=== PATIENT | male | born 1945 | race Hispanic/Latino ===

== ENCOUNTER → 2022-09-03 | Outpatient (CLI) | payer OTHER ==
[2022-09-03 12:34] LABS: BASOPHILS % (AUTO) 0.3 % (0.0-5.0); EOSINOPHILS % (AUTO) 1.6 % (0.0-8.0); HEMATOCRIT 38.5 % (42-54); LYMPHOCYTES % (AUTO) 26.5 % (21.0-51.0); MEAN CORPUSCULAR HEMOGLOBIN 29.1 pg (27.0-33.0); MEAN CORPUSCULAR HGB CONC 32.5 g/dL (32.0-36.0); MEAN CORPUSCULAR VOLUME 89.7 fL (79-99); MONOCYTES % (AUTO) 7.5 % (3.0-13.0); NEUTROPHILS % (AUTO) 63.7 % (40.0-77.0); PLATELET COUNT (AUTO) 247 K/uL (130-400); RED BLOOD CELL COUNT(AUTO) 4.29 MIL/uL (4.50-6.20); RED CELL DISTRIBUTION WIDTH 13.4 % (11.0-15.5)
[2022-09-03 12:44] LABS: HEMOGLOBIN A1C 5.9 % (4.0-6.0)
[2022-09-03 13:05] LABS: ALBUMIN 3.7 g/dL (3.5-5.0); CREATININE 1.2 mg/dL (0.5-1.5); POTASSIUM 4.5 mmol/L (3.5-5.1); T4 (THYROXINE) 7.3 ug/dL (4.7-13.3); THYROID STIMULATING HORMONE 3.09 uIU/mL (0.36-3.74); TOTAL PROTEIN, SERUM 7.5 g/dL (6.0-8.3)
== END | disposition home or self-care (01) ==
LOC: LAB 08:44
PROVIDERS: ATTEND Internal Medicine Cardiovascular Disease
DX: E78.5 Hyperlipidemia, unspecified (principal); I73.9 Peripheral vascular disease, unspecified; I10 Essential (primary) hypertension; E11.9 Type 2 diabetes mellitus without complications
CPT/HCPCS: 36415; 80053; 80061; 83036; 84436; 84443; 84479; 85025

== ENCOUNTER → 2022-09-10 | Outpatient (CLI) | payer OTHER ==
[2022-09-10 13:15] LABS: ALBUMIN 3.7 g/dL (3.5-5.0); CREATININE 1.2 mg/dL (0.5-1.5); POTASSIUM 4.5 mmol/L (3.5-5.1); TOTAL PROTEIN, SERUM 7.5 g/dL (6.0-8.3)
== END | disposition home or self-care (01) ==
LOC: LAB 09:05
PROVIDERS: ATTEND Internal Medicine Cardiovascular Disease
DX: I73.9 Peripheral vascular disease, unspecified (principal)
CPT/HCPCS: 36415; 80053

== ENCOUNTER → 2022-09-17 | Outpatient (CLI) | payer OTHER ==
[~2022-09-17] MED LIST: IOHEXOL 350 MG/ML 100ML INFUS..BTL IV ONE; IOHEXOL-350 50ML VIAL IV ONE
== END | disposition home or self-care (01) ==
LOC: RAH 07:31
PROVIDERS: ATTEND Internal Medicine Cardiovascular Disease
DX: I71.43 Infrarenal abdominal aortic aneurysm, without rupture (principal); I73.9 Peripheral vascular disease, unspecified; K57.90 Diverticulosis of intestine, part unspecified, without perforation or abscess without bleeding; I70.8 Atherosclerosis of other arteries; I10 Essential (primary) hypertension; K44.9 Diaphragmatic hernia without obstruction or gangrene; K76.89 Other specified diseases of liver; N28.1 Cyst of kidney, acquired; N32.89 Other specified disorders of bladder; J98.11 Atelectasis; J98.4 Other disorders of lung; M47.815 Spondylosis without myelopathy or radiculopathy, thoracolumbar region
CPT/HCPCS: 75635; Q9967 ×2

== ENCOUNTER → 2022-10-06 | Outpatient (CLI) | payer OTHER | END | disposition home or self-care (01) | LOC: RAH 12:41 | PROVIDERS: ATTEND Internal Medicine Cardiovascular Disease | DX: Z13.6 Encounter for screening for cardiovascular disorders (principal); I51.5 Myocardial degeneration | CPT/HCPCS: 75571 ==

== ENCOUNTER → 2022-11-18 | Outpatient (CLI) | payer OTHER ==
[~2022-11-18] MED LIST changes: -IOHEXOL 350 MG/ML 100ML INFUS..BTL IV ONE; -IOHEXOL-350 50ML VIAL IV ONE; +REGADENOSON 0.4 MG/5 ML PF SYG IVP SCH
== END | disposition home or self-care (01) ==
LOC: SHCH 07:50
PROVIDERS: ATTEND Internal Medicine Cardiovascular Disease
DX: R93.1 Abnormal findings on diagnostic imaging of heart and coronary circulation (principal); E78.5 Hyperlipidemia, unspecified; I73.9 Peripheral vascular disease, unspecified; Z79.899 Other long term (current) drug therapy
CPT/HCPCS: 78452; 96374; 93017; J2785; A9500 ×2

== ENCOUNTER 2023-07-28 06:06 | Day surgery (SDC) | payer OTHER ==
[2023-07-22 11:46] VITALS: BP 161/64; PULSE 78; RESP 18
[2023-07-22 12:06] LABS: BASOPHILS # (AUTO) 0.02 K/uL (0.00-0.20); BASOPHILS % (AUTO) 0.4 % (0.0-5.0); EOSINOPHILS # (AUTO) 0.07 K/uL (0.00-0.70); EOSINOPHILS % (AUTO) 1.3 % (0.0-8.0); HEMATOCRIT 33.2 % (42-54); IMMATURE GRANULOCYTE ABSOLUTE 0.02 K/uL (0-1); LYMPHOCYTES # (AUTO) 1.6 K/uL (1.0-4.8); LYMPHOCYTES % (AUTO) 30.3 % (21.0-51.0); MEAN CORPUSCULAR HEMOGLOBIN 29.3 pg (27.0-33.0); MEAN CORPUSCULAR HGB CONC 31.6 g/dL (32.0-36.0); MEAN CORPUSCULAR VOLUME 92.7 fL (79-99); MONOCYTES # (AUTO) 0.3 K/uL (0.1-1.0); MONOCYTES % (AUTO) 5.9 % (3.0-13.0); NEUTROPHILS # (AUTO) 3.2 K/uL (1.8-7.7); NEUTROPHILS % (AUTO) 61.7 % (40.0-77.0); PLATELET COUNT (AUTO) 166 K/uL (130-400); RED BLOOD CELL COUNT(AUTO) 3.58 MIL/uL (4.50-6.20); RED CELL DISTRIBUTION WIDTH 13.7 % (11.0-15.5); WHITE BLOOD COUNT (AUTO) 5.2 K/uL (4.8-10.8)
[2023-07-22 12:17] LABS: CREATININE 1.2 mg/dL (0.5-1.5); PROTHROMBIN TIME 11.6 SEC (9.6-11.6)
[2023-07-22 12:18] LABS: PARTIAL THROMBOPLASTIN TIME 25.9 SEC (26.3-35.5)
[2023-07-28] VITALS (17 sets, daily range): BP systolic 96–155; BP diastolic 51–74; PULSE 55–84; RESP 10–18
[~2023-07-28] VITALS: Ht 180.3 cm; Wt 87.8 kg
[~2023-07-28 06:06] MED LIST changes: +ATOR10 PO; +CILO100T3 PO; +FINA5TAB41 PO; +FIORIT PO; +GABA-529 PO; +LISI10TA24 PO; +MECL-160 PO; -REGADENOSON 0.4 MG/5 ML PF SYG IVP SCH; +SENN-307 PO; +SERT-438 PO
[2023-07-28] MEDS ORDERED: LACTATED RINGERS 1000ML 1,000 ML IV ONE (06:26)
[2023-07-28] MEDS ORDERED: CEFAZOLIN SODIUM 2 GM VIAL ONE (06:26)
[2023-07-28] MEDS ORDERED: BUPIVACAINE/PF 0.25% 30ML VIAL IJ ONE (07:40)
[2023-07-28] MEDS ORDERED: EPINEPHRINE PF 1MG (1:1,000) 1 MG/ML AMP ONE (07:40)
[2023-07-28] MEDS ORDERED: FENTANYL CITRATE PF 50 MCG/1 ML 2ML VIAL ONE (07:59)
[2023-07-28] MEDS ORDERED: MIDAZOLAM HCL 1 MG/ML 2ML VIAL ONE (07:59)
[2023-07-28] MEDS ORDERED: PROPOFOL 10 MG/ML 20ML VIAL IV ONE ×2 (07:59→08:20)
[2023-07-28] MEDS ORDERED: GLYCOPYRROLATE 1 MG/5 ML SYRINGE ONE (08:26)
[2023-07-28] MEDS ORDERED: EPHEDRINE SULFATE 50 MG/ML AMPULE ONE (08:29)
[2023-07-28] MEDS ORDERED: PHENYLEPHRINE HCL 10 MG/ML 1ML VIAL IV ONE (08:42)
[2023-07-28] MEDS ORDERED: DOCU-116 PO (08:46)
[2023-07-28] MEDS ORDERED: TRAM50TA4 PO (08:48)
== END 2023-07-28 10:55 | disposition home or self-care (01) ==
LOC: DAH 06:06
PROVIDERS: ATTEND Surgery
DX: K61.0 Anal abscess (principal); L05.91 Pilonidal cyst without abscess; K21.9 Gastro-esophageal reflux disease without esophagitis; E78.5 Hyperlipidemia, unspecified; Z79.01 Long term (current) use of anticoagulants; Z79.899 Other long term (current) drug therapy
CPT/HCPCS: 93005; 80048; 85025; 85610; 85730; 36415; 46922; 88304; A6260; J7120; J3010; J3490 ×2; J0171; J2250; J2704 ×2; J2371; J0690; A6446; A4649; A4215; A4223; A4222; A4221; A4663; A4600

== ENCOUNTER 2024-12-24 01:08 | Inpatient (IN) | payer OTHER ==
[~2024-12-24] VITALS: Ht 177.8 cm; Wt 90.9 kg
[~2024-12-24 01:08] MED LIST changes: +DOCU-116 PO; -MECL-160 PO; +MECL-302 PO; +TRAM50TA4 PO
[2024-12-24 02:16] LABS: BASOPHILS # (AUTO) 0.01 K/uL (0.00-0.20); BASOPHILS % (AUTO) 0.2 % (0.0-5.0); EOSINOPHILS # (AUTO) 0.01 K/uL (0.00-0.70); EOSINOPHILS % (AUTO) 0.2 % (0.0-8.0); HEMATOCRIT 34.2 % (42-54); IMMATURE GRANULOCYTE ABSOLUTE 0.01 K/uL (0-1); LYMPHOCYTES # (AUTO) 0.6 K/uL (1.0-4.8); LYMPHOCYTES % (AUTO) 9.7 % (21.0-51.0); MEAN CORPUSCULAR HEMOGLOBIN 29.5 pg (27.0-33.0); MEAN CORPUSCULAR HGB CONC 32.2 g/dL (32.0-36.0); MEAN CORPUSCULAR VOLUME 91.7 fL (79-99); MONOCYTES # (AUTO) 0.6 K/uL (0.1-1.0); MONOCYTES % (AUTO) 9.5 % (3.0-13.0); NEUTROPHILS # (AUTO) 4.6 K/uL (1.8-7.7); NEUTROPHILS % (AUTO) 80.2 % (40.0-77.0); PLATELET COUNT (AUTO) 157 K/uL (130-400); RED BLOOD CELL COUNT(AUTO) 3.73 MIL/uL (4.50-6.20); RED CELL DISTRIBUTION WIDTH 13.2 % (11.0-15.5); WHITE BLOOD COUNT (AUTO) 5.8 K/uL (4.8-10.8)
[2024-12-24 02:21] LABS: INR 1.06 (0.85-1.15); PROTHROMBIN TIME 11.8 SEC (9.6-11.6)
[2024-12-24 02:22] LABS: SARS-CoV-2, RNA, NAAT NEGATIVE SARS CoV-2 (NEGATIVE)
[2024-12-24 02:22] LABS: CREATININE 1.4 mg/dL (0.5-1.3); PARTIAL THROMBOPLASTIN TIME 28.3 SEC (26.3-35.5); POTASSIUM 4.3 mmol/L (3.5-5.1)
[2024-12-24 02:26] LABS: INFLUENZA TYPE B Negative For Type B (NEGATIVE)
[2024-12-24 02:28] LABS: INFLUENZA TYPE A Positive For Type A (NEGATIVE)
[2024-12-24] MEDS: OSELTAMIVIR PHOSPHATE 75 MG CAP PO ONE (03:33)
--- NOTE | 2024-12-24 05:08 | ERN ---
General Chief Complaint: Mechanical Fall Stated Complaint: LOW BACK PAIN S/P FALL, - LOC, - ANTICOAGULANTS Time Seen by MD: 01:30 History of Present Illness Initial Comments 79-year-old male came in after a fall secondary to a syncopal episode. Patient also states that he has been having fever with cough. Patient otherwise has no concerns. Allergies: Coded Allergies: No Known Allergies (Verified Allergy, Unknown, 11/14/22) Home Meds Active Scripts Tramadol Hcl (Tramadol HCl) 50 Mg Tablet, 50 MG PO Q6HPRN PRN for PAIN, #28 TAB 0 Refills Prov:ADELAIDA UREÑA MD 07/28/23 Docusate Sodium (Colace) 100 Mg Capsule, 100 MG PO BID, #30 CAP 0 Refills Prov:ADELAIDA UREÑA MD 07/28/23 Reported Medications Meclizine HCl (Meclizine HCl) 25 Mg Tablet, 25 MG PO TID PRN for DIZZINESS, TAB 07/22/23 Sennosides/Docusate Sodium (Stool Softener Tablet) 1 Each Tablet, 1 EACH PO DAILY PRN for CONSTIPATION, TAB 07/22/23 Atorvastatin Calcium (LIPITOR) 10 Mg Tab, 10 MG PO HS, TAB 07/22/23 Butalb/Acetaminophen/Caffeine (Fioricet) 1 Tab Tab, 1 TAB PO Q4HPRN PRN for HEADACHE, TAB 07/22/23 Cilostazol (Cilostazol) 100 Mg Tablet, 100 MG PO BID, TAB 07/22/23 Sertraline HCl (Sertraline HCl) 25 Mg Tablet, 25 MG PO DAILY, TAB 07/22/23 Lisinopril (Lisinopril) 10 Mg Tablet, 10 MG PO DAILY, TAB 07/22/23 Finasteride (Finasteride) 5 Mg Tablet, 5 MG PO DAILY, TAB 07/22/23 Gabapentin (Gabapentin) 100 Mg Capsule, 100 MG PO TID, CAP 07/22/23 Past Medical History Past Medical History: Diabetes-Type II, High Cholesterol, Hypertension Medical History Other: BPH Past Surgical History: Unknown ROS Dictation CONSTITUTIONAL: Negative except for HPI HEAD/FACE: Negative except for HPI EENT: Negative except for HPI RESPIRATORY: Negative except for HPI GASTROINTESTINAL/ABDOMINAL: Negative except for HPI GENITOURINARY: Negative except for HPI MUSCULOSKELETAL: Negative except for HPI INTEGUMENTARY: Negative except for HPI NEUROLOGICAL/PSYCH: Negative except for HPI HEMATOLOGIC/LYMPHATIC: Negative except for HPI All Systems Negative, Except as noted above. 13 point review of systems assessed and all negative except for above. Physical Exam Physical Exam Dictation Vital Signs reviewed General Appearance: Alert, oriented x 3, no acute distress, well developed, nourished. Head and Face: non-traumatic. Eyes: PERRL, pink conjunctivas, eyelid no trauma, anterior chamber with arcus senilis. Ears: Pinnas intact and no signs of trauma or erythema ear canals clear and no discharge TM no erythema Nose: No discharge, no bleeding. Oropharynx: Mouth normal, tongue pink, pharynx clear,no erythema, tonsils no exudates, no abscesses noted, mucous membrane moist Neck: Supple, non-tender, no thyromegaly, no masses, no JVD, no bruits Breast:Deferred Chest:No tenderness, no crepitus, no paradoxical movement, no retractions Lungs:Clear, well-ventilated, symmetric, no rales, no wheezing, no rhonchi, no stridor, good breath sounds bilaterally Heart: Regular rate, regular rhythm, no murmur, no gallops Vascular: no peripheral edema, Abdomen: Soft, positive bowel sounds, nondistended, no guarding, nontender, no rebound, no masses no hepatomegaly, no splenomegaly, no Field's sign, no hernias. Rectal: Deferred Genital: Deferred Neurological: Normal speech, motor function intact, sensory function intact Musculoskeletal: Neck nontender, full range of motion, back nontender, full range of motion, Extremities: nontender, full range of motion Skin: Color pink, dry, no turgor, no rash, no lacerations, no abrasions, no contusions. Lymphatic: Deferred Results Laboratory and Microbiology Lab and Micro Result Laboratory Tests Test 12/24/24 01:50 12/24/24 02:01 Influenza Type A Antigen Positive For Type A Influenza Type B Antigen Negative For Type B SARS-CoV-2, RNA, NAAT NEGATIVE SARS CoV-2 White Blood Count 5.8 K/uL (4.8-10.8) Red Blood Count 3.73 MIL/uL (4.50-6.20) L Hemoglobin 11.0 g/dL (14.0-18.0) L Hematocrit 34.2 % (42-54) L Mean Corpuscular Volume 91.7 fL (79-99) Mean Corpuscular Hemoglobin 29.5 pg (27.0-33.0) Mean Corpuscular Hemoglobin Concent 32.2 g/dL (32.0-36.0) Red Cell Distribution Width 13.2 % (11.0-15.5) Platelet Count 157 K/uL (130-400) Mean Platelet Volume 10.6 fL (7.5-10.5) H Immature Granulocyte % (Auto) 0.2 % (0-1) Neutrophils (%) (Auto) 80.2 % (40.0-77.0) H Lymphocytes (%) (Auto) 9.7 % (21.0-51.0) L Monocytes (%) (Auto) 9.5 % (3.0-13.0) Eosinophils (%) (Auto) 0.2 % (0.0-8.0) Basophils (%) (Auto) 0.2 % (0.0-5.0) Neutrophils # (Auto) 4.6 K/uL (1.8-7.7) Lymphocytes # (Auto) 0.6 K/uL (1.0-4.8) L Monocytes # (Auto) 0.6 K/uL (0.1-1.0) Eosinophils # (Auto) 0.01 K/uL (0.00-0.70) Basophils # (Auto) 0.01 K/uL (0.00-0.20) Absolute Immature Granulocyte (auto 0.01 K/uL (0-1) Nucleated Red Blood Cells 0.0 % (0.0-0.19) White Cell Morphology Comment See comments Prothrombin Time 11.8 SEC (9.6-11.6) H Prothromb Time International Ratio 1.06 (0.85-1.15) Activated Partial Thromboplast Time 28.3 SEC (26.3-35.5) Sodium Level 136 mmol/L (136-145) Potassium Level 4.3 mmol/L (3.5-5.1) Chloride Level 100 mmol/L (101-111) L Carbon Dioxide Level 28 mmol/L (21-32) Blood Urea Nitrogen 25 mg/dL (7-18) H Creatinine 1.4 mg/dL (0.5-1.3) H Glomerular Filtration Rate Calc 50 mL/min (>90) Random Glucose 112 mg/dL (70-105) H Lactic Acid Level 1.4 mmol/L (0.8-2.5) Total Calcium 8.1 mg/dL (8.5-10.1) L Troponin I High Sensitivity 13 ng/L (4-75) Lipase 19 U/L (16-77) Procalcitonin < 0.05 ng/mL (0.05-0.5) L MDM MDM: Differential diagnosis: Rationale: Tests considered and ordered secondary to shared decision making include: Previous outside records reviewed: Old ER visits. Risk of complication and/or morbidity or mortality of patient management: None Medications-Per medication reconciliation Need for hospitalization: Patient does meet criteria for hospitalization. Need for emergency major/minor surgery: No There are no social concerns with this patient. Prescription drug management Prescriptions will include symptomatic care Patient's prior external medical records from other ER visits were reviewed by me as indicated. Prior testing and results from previous visits were reviewed. Prior tests were taken into account with medical decision making and resource utilization, independent historian/historians were used to obtain complete medical history. I independently interpreted the test that were performed, results were reviewed by me and considered findings on radiology if ordered. Medical management and examination interpretation discussions were had by me w ith other qualified healthcare professionals as indicated for the patient's care. ED Course Orders Procedure Category Date Status Time 12 Lead Ekg Tracing- EKG 12/24/24 Logged Technical 01:35 Cbc With Differential LAB 12/24/24 Complete 01:35 Basic Metabolic Panel LAB 12/24/24 Complete 01:35 Covid Rna Naat LAB 12/24/24 Complete 01:35 Influenza Type A & B, LAB 12/24/24 Complete Rapid 01:35 Lactic Acid LAB 12/24/24 Complete 01:35 Lipase LAB 12/24/24 Complete 01:35 Procalcitonin LAB 12/24/24 Complete 01:35 Pt And Ptt LAB 12/24/24 Complete 01:35 Troponin I High LAB 12/24/24 Complete Sensitivity 01:35 Urinalysis LAB 12/24/24 Logged W/Microscopic 01:35 Chest 1vw RAD 12/24/24 Taken 01:35 Ct Head/Brain W/O CT 12/24/24 Taken Contrast 01:35 Ct Lumbar Spine W/O CT 12/24/24 Taken Contrast 01:54 Oseltamivir Phosphate PHA 12/24/24 Complete (Tamiflu) 03:30 Current Medications Medications (Trade) Dose Ordered Sig/Kristyn Route PRN Reason Start Time Stop Time Status Last Admin Dose Admin Oseltamivir Phosphate (Tamiflu) 75 mg ONCE ONCE PO 12/24/24 03:30 12/24/24 03:31 DC 12/24/24 03:33 Vital Signs Date Time Temp Pulse Resp B/P (MAP) Pulse Ox O2 Delivery O2 Flow Rate FiO2 12/24/24 02:58 98.4 87 15 138/49 95 Room Air* 0 21 12/24/24 01:13 100.9 98 16 142/77 97 Room Air 0 12/24/24 01:11 100.9 98 16 142/77 97 Room Air* 0 21 DX & DISP Disposition: Inpatient Departure Impression: Primary Impression: Syncope Additional Impressions: Pneumonitis, Influenza Condition: Stable Referrals: RIA ALLISON MD (PCP) JANEL STALLWORTH MD Dec 24, 2024 05:08
[2024-12-24] MEDS ORDERED: ondanSETRON 4MG TABLET PO PRN (05:30)
[2024-12-24] MEDS: DOXYCYCLINE HYCLATE 100 MG TABLET PO SCH (06:15)
[2024-12-24] MEDS: cefTRIAXone 1G VIAL IVPB SCH (06:15)
[2024-12-24] MEDS ORDERED: RISP0.5T80 PO (06:32)
[2024-12-24] MEDS ORDERED: METF-526 PO (06:32)
[2024-12-24] MEDS ORDERED: BREX1TAB PO ×2 (06:33→14:39)
[2024-12-24 06:34] LABS: APPEARANCE,URINE CLEAR (CLEAR); BILIRUBIN,URINE NEGATIVE (NEGATIVE); COLOR,URINE LIGHT-YELLOW (YELLOW); GLUCOSE, URINE (UA) NEGATIVE (NEGATIVE); KETONES,URINE NEGATIVE (NEGATIVE); LEUKOCYTE ESTERASE ,URINE NEGATIVE Leu/uL (NEGATIVE); NITRATE,URINE NEGATIVE (NEGATIVE); OCCULT BLOOD,URINE NEGATIVE (NEGATIVE); PROTEIN,URINE NEGATIVE (NEGATIVE); UROBILINOGEN,URINE 0.2 mg/dL (0.2-1.0)
--- NOTE | 2024-12-24 06:37 | EKG ---
[facility] Test Date: 2024-12-24 Test Time: 02:00:22 Pat Name: CHAZ HURST Department: EDHIP Room: ED 20 Gender: M Potato Bucker: [id number] Requested By: JANEL STALLWORTH Order Number: [id number] Reading MD: Teddy James Measurements Intervals [place] Rate: 92 P: 58 MN: 166 QRS: 53 QRSD: 101 T: 61 QT: 369 QTc: 457 Interpretive Statements Sinus rhythm Compared to ECG 07/22/2023 11:24:42 No significant changes Electronically Signed On 12-24-2024 17:17:55 [employer] W[employer]ER by Teddy James Please click the below link to view image of tracing.
[2024-12-24 06:56] LABS: BACTERIA,URINE RARE /HPF (None Seen); MUCUS,URINE FEW LPF (None Seen); OTHER CASTS, URINE 1 /LPF (None Seen); RBC,URINE 0-1 /HPF (0-1); SQUAMOUS EPITHELIAL CELL,UR RARE /HPF (0-2); WBC,URINE 0-1 /HPF (0-1)
--- NOTE | 2024-12-24 08:13 | HMCIMG ---
Exam Type: CT HEAD/BRAIN W/O CONTRAST Clinical Information: Syncope Comparison: None CT Dose Index (CTDI): 57.33 mGy Dose Length Product (DLP): 956.79 total mGy-cm Findings: There is low attenuation throughout the periventricular white matter locations, consistent with chronic small vessel ischemic changes. No acute intra- or extra-axial fluid collections are seen. There is no evidence of acute or chronic hemorrhage. There is no mass effect or shift of midline structures. There are no areas to suggest acute infarct. The skull windows show no significant abnormalities. IMPRESSION: 1. CHRONIC SMALL VESSEL ISCHEMIC CHANGES.
[2024-12-24 08:22] LABS: BASOPHILS # (AUTO) 0.02 K/uL (0.00-0.20); BASOPHILS % (AUTO) 0.4 % (0.0-5.0); EOSINOPHILS # (AUTO) 0.02 K/uL (0.00-0.70); EOSINOPHILS % (AUTO) 0.4 % (0.0-8.0); HEMATOCRIT 34.7 % (42-54); IMMATURE GRANULOCYTE ABSOLUTE 0.02 K/uL (0-1); LYMPHOCYTES # (AUTO) 0.7 K/uL (1.0-4.8); LYMPHOCYTES % (AUTO) 12.6 % (21.0-51.0); MEAN CORPUSCULAR HEMOGLOBIN 29.8 pg (27.0-33.0); MEAN CORPUSCULAR HGB CONC 32.6 g/dL (32.0-36.0); MEAN CORPUSCULAR VOLUME 91.6 fL (79-99); MONOCYTES # (AUTO) 0.6 K/uL (0.1-1.0); MONOCYTES % (AUTO) 10.8 % (3.0-13.0); NEUTROPHILS # (AUTO) 4.2 K/uL (1.8-7.7); NEUTROPHILS % (AUTO) 75.4 % (40.0-77.0); PLATELET COUNT (AUTO) 150 K/uL (130-400); RED BLOOD CELL COUNT(AUTO) 3.79 MIL/uL (4.50-6.20); RED CELL DISTRIBUTION WIDTH 13.3 % (11.0-15.5); WHITE BLOOD COUNT (AUTO) 5.6 K/uL (4.8-10.8)
--- NOTE | 2024-12-24 08:33 | HMCIMG ---
Exam Type: CT lumbar spine without contrast Clinical Information: Comparison: Technique: Spiral axial images were performed from T12 to the sacrum. Both sagittal and coronal reconstructions were performed. CT Dose Index (CTDI): mGy Dose Length Product (DLP): total Findings: There is normal alignment of the vertebral bodies. There are no fractures. There is facet hypertrophy. There are spondylitic changes. There are no large bulges or herniations. The prevertebral soft tissues are normal. IMPRESSION: Degenerative changes as noted.
[2024-12-24 08:39] LABS: ALBUMIN 3.4 g/dL (3.5-5.0); BILIRUBIN,TOTAL 0.6 mg/dL (0.2-1.0); CREATININE 1.2 mg/dL (0.5-1.3); MAGNESIUM 1.8 mg/dL (1.80-2.40); POTASSIUM 3.7 mmol/L (3.5-5.1); TOTAL PROTEIN, SERUM 7.2 g/dL (6.0-8.3)
[2024-12-24] MEDS: ENOXAPARIN SODIUM 30 MG/0.3 ML SQ SCH (08:50)
[2024-12-24] MEDS: OSELTAMIVIR PHOSPHATE 75 MG CAP PO SCH (08:50)
--- NOTE | 2024-12-24 08:55 | HMCIMG ---
Exam Type: CHEST 1VW Clinical Information: Shortness for breath Comparison: None Findings: Left Mediport catheter in place. The lungs are clear of infiltrates. The heart is normal in size. The bony and soft tissue structures of the chest are unremarkable. Impression: Clear lungs.
[2024-12-24] MEDS ORDERED: FINA5TAB41 PO (14:39)
[2024-12-24] MEDS ORDERED: METF-1150 PO (14:39)
[2024-12-24] MEDS ORDERED: MECL-226 PO (14:39)
[2024-12-24] MEDS ORDERED: GABA-529 PO (14:39)
[2024-12-24] MEDS ORDERED: RISP0.5T46 PO (14:39)
[2024-12-24] MEDS ORDERED: ATOR10 PO (14:39)
[2024-12-24] MEDS ORDERED: SERT-438 PO (14:39)
[2024-12-24 17:05] VITALS: BP 164/82; PULSE 95; RESP 20; TEMP 98.1
[2024-12-24 17:49] VITALS: O2SAT 97
[2024-12-24 20:00] VITALS: BP 182/86; PULSE 96; RESP 17; TEMP 97.8
[2024-12-24] MEDS: GABApentin 100 MG CAPSULE PO SCH (20:29)
[2024-12-24] MEDS: RISPERIDONE 0.5 MG PO SCH (20:29)
[2024-12-24] MEDS: atorVAStatin 10 MG TABLET PO SCH (20:29)
[2024-12-24] MEDS: mecliZINE HCL 12.5 MG TABLET PO SCH (20:29)
[2024-12-24 20:34] VITALS: O2SAT 97
[2024-12-25] VITALS (8 sets, daily range): BP systolic 117–153; BP diastolic 67–90; PULSE 78–89; RESP 16–19; TEMP 97.4–98.7; O2SAT 94–96
[2024-12-25] MEDS: acetaMINOPHEN 325 MG TAB PO PRN (04:49)
--- NOTE | 2024-12-25 05:36 | HP ---
DATE OF SERVICE: 12/24/2024 HISTORY AND PHYSICAL PRESENTING COMPLAINT: Fall and fever. HISTORY OF PRESENT ILLNESS: An 79-year-old male with history of depression, obesity, hypertension, diabetes mellitus, who presented to hospital with fall. The patient initially tripped and subsequently fell. Denied losing consciousness. No headache or dizziness. The patient also complained of some low-grade fever. T-max in the Emergency Room was 100.9. The patient also complained of cough, shortness of breath and body ache. Influenza antigen came back positive. COVID PCR was negative. Chest x-ray was unremarkable. CT of the lumbar spine showed degenerative changes. CT of the brain shows no acute finding except for chronic ischemic changes. PAST MEDICAL HISTORY: * Obesity. * Hypertension. * Depression. * BPH. * Dyslipidemia. * Diabetes mellitus. PAST SURGICAL HISTORY: Reviewed. ALLERGIES: No known drug allergy. HOME MEDICATIONS: Reviewed. SOCIAL HISTORY: Lives with . No alcohol, tobacco or illicit drug use. FAMILY HISTORY: Positive for diabetes mellitus. REVIEW OF SYSTEMS: CONSTITUTIONAL: Positive for fever and chills. No weight loss or night sweats. EYES: No eye pain, no photophobia or diplopia. HENT: No sore throat, no rhinorrhea or earache. NECK: No neck pain or neck swelling. RESPIRATORY: Positive for cough. No hemoptysis or pleuritic pain. CARDIOVASCULAR: No chest pain, no palpitation or orthopnea. GASTROINTESTINAL: Denied nausea, vomiting, or abdominal pain. GENITOURINARY: No dysuria, urgency or urinary frequency. CENTRAL NERVOUS SYSTEM: No headache, dyspnea, or slurred speech. PSYCHIATRY: No depression. No suicidal ideation. MUSCULOSKELETAL: No joint pain or joint swelling. PHYSICAL EXAMINATION: GENERAL: Elderly male, awake, not in distress. VITAL SIGNS: Temperature 100.9, pulse 91, respiratory rate 20, BP 130/64. EYES: No icterus. Pupils equal and reactive. HENT: No oral thrush seen. Moist oral mucosa. NECK: Supple, no JVD or thyromegaly. LUNGS: Good air entry. No rales, no rhonchi. CARDIOVASCULAR: S1, S2 regular. No murmur heard. ABDOMEN: Obese, soft, nontender. Bowel sound is present. CENTRAL NERVOUS SYSTEM: Awake, alert, oriented x 3. No focal deficits. SKIN: No rashes, no itchiness. LYMPHATIC: No peripheral lymphadenopathy. BACK: No deformity, no pressure ulcer. MUSCULOSKELETAL: No joint swelling, erythema or tenderness. LABORATORY DATA: Sodium 136, potassium 4.3, BUN 25, creatinine 1.4. WBC 5.6, hemoglobin 11.3, platelet 150. Urinalysis negative. Influenza antigen positive for type A. COVID PCR negative. RADIOLOGY: CT of the lumbar spine showed degenerative changes. Chest x-ray unremarkable. CT of the head shows chronic small vessel changes. ASSESSMENT: An 79-year-old male presenting with fever and fall. CURRENT PROBLEMS: Include: * Viral influenzae infection. * Mechanical fall. * Dehydration. * Acute renal failure. * Hypertension. * Diabetes mellitus. * Morbid obesity. PLAN: * The patient admitted to medical floor with telemetry. * Start the patient on ceftriaxone. * Start the patient on doxycycline. * Start the patient on Tamiflu. * ADA diuresis. * Insulin sliding scale. * PT evaluation. * Home medication will be reconciled. * Tylenol as needed for pain or fever. * Lovenox for DVT prophylaxis. TID: [id number] RECEIPT: [id number] MTD
[2024-12-25] MEDS: BREXPIPRAZOLE PO SCH (08:52)
[2024-12-25] MEDS: SERTraline HCL 50 MG TABLET PO SCH (08:52)
[2024-12-25] MEDS: metFORmin HCL 500 MG TAB.SR.24H PO SCH (08:53)
[2024-12-25] MEDS: RISPERIDONE 0.5 MG PO SCH (08:53)
[2024-12-25] MEDS: finaSTERide 5 MG TABLET PO SCH (08:53)
[2024-12-25] MEDS ORDERED: METFORMIN HCL PO SCH (09:00)
[2024-12-25] MEDS ORDERED: guaiFENesin-DM 200/20MG 10ML PO PRN (13:00)
--- NOTE | 2024-12-25 13:12 | PN ---
INFECTIOUS DISEASE PROGRESS NOTE Date of Service: Dec 25, 2024 SUBJECTIVE: This is a 79-year-old male patient who was admitted to the hospital after sustaining a fall at home and fever. Temperature on admission was 100.9. Patient tested positive for influenza type A. 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 Patient has been started on Tamiflu, ceftriaxone and doxycycline. No reports of nausea or vomiting. Patient's visiting at bedside and was updated with findings. We will continue to follow patient's care. PHYSICAL EXAM EYES: Anicteric. Pupils equal and reactive. HENT: No oral thrush seen, moist Oral mucosa. NECK: Supple, no JVD or thyromegaly. RESPIRATORY: Crackles to bilateral upper lobes. CARDIOVASCULAR: S1, S2 regular. No murmur heard. ABDOMEN: Soft, non tender, bowel sounds present, no organomegaly. CENTRAL NERVOUS SYSTEM: Awake, alert, oriented x 2. SKIN: No rashes, no swelling. LYMPHATICS: No peripheral lymphadenopathy. MUSCULOSKELETAL: No joint swelling, erythema or tenderness. EXTREMITIES: No cyanosis or clubbing. Weakness. BACK: No deformity, no pressure ulcer. GENITOURINARY: No dysuria or hematuria. Vital Sign (Last 12 Hours) 12/25/24 12/25/24 12/25/24 12/25/24 04:00 04:49 08:00 09:34 Temp 98.1 98.1 97.9 Pulse 78 83 Resp 16 19 B/P (MAP) 143/76 141/75 Pulse Ox 96 96 96 O2 Delivery Room Air Room Air Room Air* O2 Flow Rate 0.0 0 FiO2 21 21 21 12/25/24 11:47 Temp 97.7 Pulse 85 Resp 19 B/P (MAP) 153/67 Pulse Ox 93 O2 Delivery Room Air FiO2 21 Intake & Output (last 24hrs) 12/24/24 12/24/24 12/25/24 15:00 23:00 07:00 Intake Total 100.0 ml Output Total 300 ml Balance -300 ml 100.0 ml LABS: Laboratory: Test 12/25/24 10:57 12/24/24 08:11 12/24/24 06:24 12/24/24 02:01 Range/Units Whole Blood Glucose 101 70-110 MG/DL White Blood Count 5.6 4.8-10.8 K/uL Red Blood Count 3.79 L 4.50-6.20 MIL/uL Hemoglobin 11.3 L 14.0-18.0 g/dL Hematocrit 34.7 L 42-54 % Mean Corpuscular Volume 91.6 79-99 fL Mean Corpuscular Hemoglobin 29.8 27.0-33.0 pg Mean Corpuscular Hemoglobin Concent 32.6 32.0-36.0 g/dL Red Cell Distribution Width 13.3 11.0-15.5 % Platelet Count 150 130-400 K/uL Mean Platelet Volume 10.4 7.5-10.5 fL Immature Granulocyte % (Auto) 0.4 0-1 % Neutrophils (%) (Auto) 75.4 40.0-77.0 % Lymphocytes (%) (Auto) 12.6 L 21.0-51.0 % Monocytes (%) (Auto) 10.8 3.0-13.0 % Eosinophils (%) (Auto) 0.4 0.0-8.0 % Basophils (%) (Auto) 0.4 0.0-5.0 % Neutrophils # (Auto) 4.2 1.8-7.7 K/uL Lymphocytes # (Auto) 0.7 L 1.0-4.8 K/uL Monocytes # (Auto) 0.6 0.1-1.0 K/uL Eosinophils # (Auto) 0.02 0.00-0.70 K/uL Basophils # (Auto) 0.02 0.00-0.20 K/uL Absolute Immature Granulocyte (auto 0.02 0-1 K/uL Nucleated Red Blood Cells 0.0 0.0-0.19 % Sodium Level 135 L 136-145 mmol/L Potassium Level 3.7 3.5-5.1 mmol/L Chloride Level 101 101-111 mmol/L Carbon Dioxide Level 27 21-32 mmol/L Blood Urea Nitrogen 22 H 7-18 mg/dL Creatinine 1.2 0.5-1.3 mg/dL Glomerular Filtration Rate Calc 61 >90 mL/min Random Glucose 106 H 70-105 mg/dL Total Calcium 7.9 L 8.5-10.1 mg/dL Magnesium Level 1.80 1.80-2.40 mg/dL Total Bilirubin 0.6 0.2-1.0 mg/dL Aspartate Amino Transf (AST/SGOT) 22 10-37 U/L Alanine Aminotransferase (ALT/SGPT) 22 12-78 U/L Alkaline Phosphatase 90 50-136 U/L Total Protein 7.2 6.0-8.3 g/dL Albumin 3.4 L 3.5-5.0 g/dL Urine Color LIGHT-YELLOW YELLOW Urine Appearance CLEAR CLEAR Urine pH 5.0 5.0-8.0 Urine Specific [place] 1.019 1.001-1.031 Urine Protein NEGATIVE NEGATIVE mg/dL Urine Glucose (UA) NEGATIVE NEGATIVE mg/dL Urine Ketones NEGATIVE NEGATIVE mg/dL Urine Occult Blood NEGATIVE NEGATIVE Urine Nitrate NEGATIVE NEGATIVE Urine Bilirubin NEGATIVE NEGATIVE mg/dL Urine Urobilinogen 0.2 0.2-1.0 mg/dL Urine Leukocyte Esterase NEGATIVE NEGATIVE Elis/uL Urine RBC 0-1 0-1 /HPF Urine WBC 0-1 0-1 /HPF Urine Squamous Epithelial Cells RARE 0-2 /HPF Urine Bacteria RARE None Seen /HPF Urine Hyaline Casts 2-5 H 0-1 /LPF /LPF Urine Other Casts 1 None Seen /LPF White Cell Morphology Comment See comments Prothrombin Time 11.8 H 9.6-11.6 SEC Prothromb Time International Ratio 1.06 0.85-1.15 Activated Partial Thromboplast Time 28.3 26.3-35.5 SEC Lactic Acid Level 1.4 0.8-2.5 mmol/L Troponin I High Sensitivity 13 4-75 ng/L Lipase 19 16-77 U/L Procalcitonin < 0.05 L 0.05-0.5 ng/mL Test 12/24/24 01:50 Range/Units Influenza Type A Antigen Positive For Type A *A NEGATIVE Influenza Type B Antigen Negative For Type B NEGATIVE SARS-CoV-2, RNA, NAAT NEGATIVE SARS CoV-2 NEGATIVE ASSESSMENT: Status post mechanical fall. Viral influenzae infection type A. Acute renal failure. Dehydration. Diabetes mellitus. Debility. PLAN: Continue ceftriaxone. Continue doxycycline. Continue Tamiflu. Continue oxygen support as needed. Glucometer checks a.c./hs and cover with insulin per sliding scale protocol. Continue with Fall prevention measures. Continue nutritional support. Physical therapy to evaluate and treat. We will monitor electrolytes. This case was reviewed and discussed with my supervising physician and the above assessment and plan was formulated and agreed upon. ATTESTATION BY PHYSICIAN I have seen and examined the patient. I reviewed the documentation, medical decision making, and treatment plan as noted by the mid-level provider above. I agree with the findings and plan of care. CHELSIE MERCADO MD, [facility] Dec 25, 2024 13:12
[2024-12-26] VITALS: BP 170/77; PULSE 86; RESP 16; TEMP 97.7
[2024-12-26 04:00] VITALS: BP 144/73; PULSE 82; RESP 17; TEMP 97.8
[2024-12-26 05:17] LABS: BASOPHILS # (AUTO) 0.01 K/uL (0.00-0.20); BASOPHILS % (AUTO) 0.2 % (0.0-5.0); EOSINOPHILS # (AUTO) 0.11 K/uL (0.00-0.70); EOSINOPHILS % (AUTO) 2.3 % (0.0-8.0); HEMATOCRIT 36.6 % (42-54); IMMATURE GRANULOCYTE ABSOLUTE 0.01 K/uL (0-1); LYMPHOCYTES # (AUTO) 1.3 K/uL (1.0-4.8); LYMPHOCYTES % (AUTO) 27.9 % (21.0-51.0); MEAN CORPUSCULAR HGB CONC 31.7 g/dL (32.0-36.0); MEAN CORPUSCULAR VOLUME 91.5 fL (79-99); MONOCYTES # (AUTO) 0.4 K/uL (0.1-1.0); MONOCYTES % (AUTO) 9.2 % (3.0-13.0); NEUTROPHILS # (AUTO) 2.9 K/uL (1.8-7.7); NEUTROPHILS % (AUTO) 60.2 % (40.0-77.0); PLATELET COUNT (AUTO) 166 K/uL (130-400); RED CELL DISTRIBUTION WIDTH 13.2 % (11.0-15.5); WHITE BLOOD COUNT (AUTO) 4.8 K/uL (4.8-10.8)
[2024-12-26 05:37] LABS: ALBUMIN 3.2 g/dL (3.5-5.0); BILIRUBIN,TOTAL 0.5 mg/dL (0.2-1.0); CREATININE 1.2 mg/dL (0.5-1.3); MAGNESIUM 1.9 mg/dL (1.80-2.40); POTASSIUM 4.1 mmol/L (3.5-5.1); TOTAL PROTEIN, SERUM 7.1 g/dL (6.0-8.3)
[2024-12-26 08:00] VITALS: BP 153/72; PULSE 79; RESP 19; TEMP 97.9; O2SAT 95
[2024-12-26] MEDS: metFORmin HCL 500 MG TAB.SR.24H PO SCH (09:41)
[2024-12-26 11:44] VITALS: BP 130/69; PULSE 82; RESP 18; TEMP 97.9
--- NOTE | 2024-12-26 15:54 | PN ---
INFECTIOUS DISEASE PROGRESS NOTE Date of Service: Dec 26, 2024 SUBJECTIVE: This is a 79-year-old male patient who was admitted to the hospital after sustaining a fall at home and fever. Temperature on admission was 100.9. Patient tested positive for influenza type A. Patient had crackles on auscul tation to bilateral upper lobes. Patient was been started on Tamiflu, ceftriaxone and doxycycline. CT of the lumbar spine was obtained on admission and it was negative for fractures. Patient is awake, alert and oriented to person. Patient's visiting at bedside. Patient is pending a physical therapy evaluation. Patient is afebrile this morning, temperature is 97.9 and a WBC of 4.8. We will continue current IV antibiotics. visiting at bedside was updated with current treatment and plan. We will continue to follow patient's care. PHYSICAL EXAM EYES: Anicteric. Pupils equal and reactive. HENT: No oral thrush seen, moist Oral mucosa. NECK: Supple, no JVD or thyromegaly. RESPIRATORY: Crackles to bilateral upper lobes. CARDIOVASCULAR: S1, S2 regular. No murmur heard. ABDOMEN: Soft, non tender, bowel sounds present, no organomegaly. CENTRAL NERVOUS SYSTEM: Awake, alert, oriented x 2. SKIN: No rashes, no swelling. LYMPHATICS: No peripheral lymphadenopathy. MUSCULOSKELETAL: No joint swelling, erythema or tenderness. EXTREMITIES: No cyanosis or clubbing. Weakness. BACK: No deformity, no pressure ulcer. GENITOURINARY: No dysuria or hematuria. Vital Sign (Last 12 Hours) 12/26/24 12/26/24 12/26/24 12/26/24 04:00 08:00 08:00 11:44 Temp 97.9 97.9 97.9 Pulse 82 79 82 Resp 17 19 18 B/P (MAP) 144/73 153/72 130/69 Pulse Ox 95 95 95 95 O2 Delivery Room Air Room Air Room Air* Room Air O2 Flow Rate 0 FiO2 21 21 Intake & Output (last 24hrs) 12/25/24 12/25/24 12/26/24 15:00 23:00 07:00 Intake Total 236 ml Balance 236 ml LABS: Laboratory: Test 12/26/24 04:58 12/25/24 15:09 Range/Units White Blood Count 4.8 4.8-10.8 K/uL Red Blood Count 4.00 L 4.50-6.20 MIL/uL Hemoglobin 11.6 L 14.0-18.0 g/dL Hematocrit 36.6 L 42-54 % Mean Corpuscular Volume 91.5 79-99 fL Mean Corpuscular Hemoglobin 29.0 27.0-33.0 pg Mean Corpuscular Hemoglobin Concent 31.7 L 32.0-36.0 g/dL Red Cell Distribution Width 13.2 11.0-15.5 % Platelet Count 166 130-400 K/uL Mean Platelet Volume 10.6 H 7.5-10.5 fL Immature Granulocyte % (Auto) 0.2 0-1 % Neutrophils (%) (Auto) 60.2 40.0-77.0 % Lymphocytes (%) (Auto) 27.9 21.0-51.0 % Monocytes (%) (Auto) 9.2 3.0-13.0 % Eosinophils (%) (Auto) 2.3 0.0-8.0 % Basophils (%) (Auto) 0.2 0.0-5.0 % Neutrophils # (Auto) 2.9 1.8-7.7 K/uL Lymphocytes # (Auto) 1.3 1.0-4.8 K/uL Monocytes # (Auto) 0.4 0.1-1.0 K/uL Eosinophils # (Auto) 0.11 0.00-0.70 K/uL Basophils # (Auto) 0.01 0.00-0.20 K/uL Absolute Immature Granulocyte (auto 0.01 0-1 K/uL Nucleated Red Blood Cells 0.0 0.0-0.19 % Sodium Level 137 136-145 mmol/L Potassium Level 4.1 3.5-5.1 mmol/L Chloride Level 102 101-111 mmol/L Carbon Dioxide Level 28 21-32 mmol/L Blood Urea Nitrogen 23 H 7-18 mg/dL Creatinine 1.2 0.5-1.3 mg/dL Glomerular Filtration Rate Calc 61 >90 mL/min Random Glucose 90 70-105 mg/dL Total Calcium 8.3 L 8.5-10.1 mg/dL Magnesium Level 1.90 1.80-2.40 mg/dL Total Bilirubin 0.5 0.2-1.0 mg/dL Aspartate Amino Transf (AST/SGOT) 24 10-37 U/L Alanine Aminotransferase (ALT/SGPT) 19 12-78 U/L Alkaline Phosphatase 86 50-136 U/L Total Protein 7.1 6.0-8.3 g/dL Albumin 3.2 L 3.5-5.0 g/dL Whole Blood Glucose 105 70-110 MG/DL ASSESSMENT: Status post mechanical fall. Pneumonia. Viral influenzae infection type A. Acute renal failure. Dehydration. Diabetes mellitus. Debility. PLAN: Continue ceftriaxone. Continue doxycycline. Continue Tamiflu. Continue oxygen support as needed. Glucometer checks a.c./hs and cover with insulin per sliding scale protocol. Continue with Fall prevention measures. Continue nutritional support. Pending Physical therapy evaluation. We will monitor electrolytes. This case was reviewed and discussed with my supervising physician and the above assessment and plan was formulated and agreed upon. ATTESTATION BY PHYSICIAN I have seen and examined the patient. I reviewed the documentation, medical decision making, and treatment plan as noted by the mid-level provider above. I agree with the findings and plan of care. CHELSIE MERCADO MD, [facility] Dec 26, 2024 15:54
[2024-12-26 16:00] VITALS: BP 133/63; PULSE 86; RESP 18; TEMP 97.9
[2024-12-26 20:00] VITALS: BP 158/71; PULSE 84; RESP 16; TEMP 98.5; O2SAT 95
[2024-12-27] VITALS: BP 144/78; PULSE 81; RESP 16; TEMP 98.7
[2024-12-27 04:00] VITALS: BP 134/84; PULSE 80; RESP 16; TEMP 98.1
[2024-12-27 06:07] LABS: BASOPHILS # (AUTO) 0.01 K/uL (0.00-0.20); BASOPHILS % (AUTO) 0.2 % (0.0-5.0); EOSINOPHILS # (AUTO) 0.11 K/uL (0.00-0.70); HEMATOCRIT 34.5 % (42-54); IMMATURE GRANULOCYTE ABSOLUTE 0.02 K/uL (0-1); LYMPHOCYTES # (AUTO) 1.3 K/uL (1.0-4.8); LYMPHOCYTES % (AUTO) 22.9 % (21.0-51.0); MEAN CORPUSCULAR HEMOGLOBIN 28.8 pg (27.0-33.0); MEAN CORPUSCULAR HGB CONC 31.9 g/dL (32.0-36.0); MEAN CORPUSCULAR VOLUME 90.3 fL (79-99); MONOCYTES # (AUTO) 0.4 K/uL (0.1-1.0); MONOCYTES % (AUTO) 7.4 % (3.0-13.0); NEUTROPHILS # (AUTO) 3.7 K/uL (1.8-7.7); NEUTROPHILS % (AUTO) 67.1 % (40.0-77.0); PLATELET COUNT (AUTO) 180 K/uL (130-400); RED BLOOD CELL COUNT(AUTO) 3.82 MIL/uL (4.50-6.20); RED CELL DISTRIBUTION WIDTH 13.1 % (11.0-15.5); WHITE BLOOD COUNT (AUTO) 5.6 K/uL (4.8-10.8)
[2024-12-27 06:26] LABS: BILIRUBIN,TOTAL 0.5 mg/dL (0.2-1.0); CREATININE 1.1 mg/dL (0.5-1.3); MAGNESIUM 1.9 mg/dL (1.80-2.40); POTASSIUM 4.1 mmol/L (3.5-5.1); TOTAL PROTEIN, SERUM 6.8 g/dL (6.0-8.3)
[2024-12-27 08:00] VITALS: BP 132/81; PULSE 81; RESP 18; TEMP 98.1
--- NOTE | 2024-12-27 09:44 | HMCIMG ---
Exam Type: CHEST 1VW Clinical Information: Follow up Comparison: None Findings: Left Mediport catheter in place. The lungs are clear of infiltrates. The heart is normal in size. The bony and soft tissue structures of the chest are unremarkable. Impression: Clear lungs.
[2024-12-27 11:18] VITALS: O2SAT 95
[2024-12-27 12:00] VITALS: BP 123/64; PULSE 92; RESP 18; TEMP 97.9
--- NOTE | 2024-12-27 15:00 | NUR ---
Discharged home. IV catheter, bands and Tele pack is removed. Discharge instructions are given and explained to the patient and his . Belongings are packaged by his spouse. The is wheeled downstairs to private vehicle.
--- NOTE | 2024-12-27 16:33 | DS ---
Discharge Summary Hospital Course This is a 79-year-old male patient with past medical history of hypertension, diabetes mellitus, depression and obesity who presented to hospital after sustaining fall at home. Patient reported that he tripped and subsequently fell. Denied losing consciousness. No headache or dizziness. The patient also complained of some low-grade fever. T-max in the Emergency Room was 100.9. The patient also complained of cough, shortness of breath and body ache. Influenza antigen came back positive. COVID PCR was negative. Chest x-ray was unremarkable, patient however having productive cough and crackles on auscultation. CT of the lumbar spine showed degenerative changes. CT of the brain shows no acute finding except for chronic ischemic changes. Patient was treated for pneumonia and viral influenza infection type A. Ph ysical therapy evaluated patient and patient was able to ambulate 125 ft. Patient will be discharged to home today with prescription for levofloxacin and Tamiflu. FINAL DISCHARGE DIAGNOSIS: Pneumonia. Status post mechanical fall. Viral influenzae infection type A. Acute renal failure. Dehydration. Diabetes mellitus. Debility. PLAN: Discharge patient to home today. Continue same home medications. New prescription for levofloxacin 500 mg p.o. daily x 5 days and Tamiflu 75 mg x 2 more days. Follow up with PCP in 3-5 days. This case was reviewed and discussed with my supervising physician and the above assessment and plan was formulated and agreed upon. ATTESTATION BY PHYSICIAN I have seen and examined the patient. I reviewed the documentation, medical decision making, and treatment plan as noted by the mid-level provider above. I agree with the findings and plan of care. CHELSIE MERCADO MD, [facility] Dec 27, 2024 16:33
== END 2024-12-27 15:20 | disposition home or self-care (01) | DRG 194 ==
LOC: EDH 01:08 → EDHIP 05:00 → 3DH 17:05
PROVIDERS: ADMIT Internal Medicine Infectious Disease; ATTEND Internal Medicine Infectious Disease
DX: J10.00 Influenza due to other identified influenza virus with unspecified type of pneumonia (principal); N17.9 Acute kidney failure, unspecified; E86.0 Dehydration; E11.9 Type 2 diabetes mellitus without complications; E66.01 Morbid (severe) obesity due to excess calories; E78.00 Pure hypercholesterolemia, unspecified; I10 Essential (primary) hypertension; N40.0 Benign prostatic hyperplasia without lower urinary tract symptoms; F32.A Depression, unspecified; Z68.28 Body mass index [BMI] 28.0-28.9, adult; Z83.3 Family history of diabetes mellitus
CPT/HCPCS: 36415; 70450; 71045; 72131; 80048; 80053; 81001; 82948; 83605; 83690; 83735; 84145; 84484; 85025; 85610; 85730; 87635; 87804; 93005; G0378; J0696; J1650